=== PATIENT | female | born 1990 | race Caucasian/White ===

== ENCOUNTER 2017-03-13 15:38 | Emergency (ER) | payer OTHER ==
[~2017-03-13] VITALS: Ht 147.3 cm; Wt 52.0 kg
[~2017-03-13 15:38] MED LIST: ALBU18HF INHALATION; CALC-277 PO; ERGO500014 PO; OMEP20CA16 PO; ONDA4TAB95 PO; POTA10TA97 PO; POTA20TA96 PO; SUCR1TAB56 PO
[2017-03-13 15:43] VITALS: Ht 147.3 cm; Wt 52.0 kg
[2017-03-13] MEDS ORDERED: ONDANSETRON 4 MG INJ IV STA (16:47)
[2017-03-13] MEDS ORDERED: morphine 4 MG/ML VIAL IV STA (16:47)
[2017-03-13] MEDS ORDERED: SOD CHLORIDE 0.9% 1,000 ML IV STA (16:47)
[2017-03-13] MEDS ORDERED: METO10TA96 PO (17:08)
[2017-03-13] MEDS ORDERED: PANT20TA3 PO (17:09)
[2017-03-13] MEDS ORDERED: POTASSIUM CHLORIDE (SR) 20 MEQ TAB PO STA ×2 (17:27→18:41)
[2017-03-13] MEDS ORDERED: MAGNESIUM OXIDE 400 MG TAB PO ONE (17:30)
[2017-03-13] MEDS ORDERED: MAGN400T28 PO (18:49)
[2017-03-13] MEDS ORDERED: ONDA4TAB11 PO (18:49)
--- NOTE | 2017-03-13 18:54 | ERD ---
ER Documentation Chief Complaint Chief Complaint vomiting x 1 week , dizziness , h/o hypokalemia HPI This 26-year-old female presents for vomiting for a week as well as dizziness and hypokalemia. States that she gets nausea from time to time and has problems with chronic hypokalemia. 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 Has occasional constipation with no diarrhea. ROS All systems reviewed and are negative except as per history of present illness. Medications Home Meds Active Scripts Ondansetron (Zofran Odt) 4 Mg Tab.rapdis, 4 MG PO Q6 for NAUSEA AND/OR VOMITING , #20 Prov:SMOOTHYUMIKO DO 03/13/17 Magnesium Oxide* (Magnesium Oxide*) 400 Mg Tablet, 400 MG PO DAILY, #30 TAB Prov:YUMIKO REBOLLAR DO 03/13/17 Reported Medications Pantoprazole* (Pantoprazole*) Unknown Strength Tablet.dr, 1 TAB PO TID, TAB 03/13/17 Metoclopramide Hcl* (Metoclopramide Hcl*) 10 Mg Tablet, 10 MG PO TID Y for NAUSEA AND OR VOMITING, TAB 03/13/17 Sucralfate* (Carafate*) 1 Gm Tab, 1 GM PO AC MEALS AND BEDTIME, TAB 04/30/16 Potassium Chloride* (Potassium Chloride*) 20 Meq Tablet.er, 60 MEQ PO DAILY, TAB.SA 04/30/16 Discontinued Reported Medications Ergocalciferol* (Drisdol* (Vitamin D2)) 50,000 Unit Capsule, [address]35[address] UNIT PO Q7D, CAP 04/30/16 Calcium Carbonate/Vitamin D3 (OYSTER SHELL 500 MG + VIT D TB) 1 Each Tablet, 1 EACH PO DAILY, TAB 04/30/16 Potassium Chloride (Klor-Con) 10 Meq Tablet.sa, 20 MEQ PO DAILY, TAB.SA 04/30/16 Ondansetron Hcl* (Ondansetron Hcl*) 4 Mg Tablet, 4 MG PO Q8 Y for PRN, TAB 04/30/16 Omeprazole* (Omeprazole*) 20 Mg Capsule.dr, 20 MG PO DAILY, #30 CAP 04/30/16 Albuterol Sulfate* (Ventolin HFA*) 18 Gm Hfa.aer.ad, 2 PUFF INHALATION Q4H, #1 INHALER 04/30/16 Allergies Allergies: Coded Allergies: No Known Allergy (Unverified , 03/13/17) PMhx/Soc History of Surgery: No Anesthesia Reaction: No Hx Neurological Disorder: No Hx Respiratory Disorders: No Hx Cardiac Disorders: No Hx Psychiatric Problems: No Hx Miscellaneous Medical Probl: Yes (medullary nephrocalcinosis , hypokalemia ) Hx Alcohol Use: No Hx Substance Use: No Hx Tobacco Use: No Smoking Status: Never smoker Physical Exam Vitals Vital Signs Date Time Temp Pulse Resp B/P Pulse Ox O2 Delivery O2 Flow Rate FiO2 03/13/17 18:40 98.1 89 18 105/55 100 Room Air 03/13/17 15:43 98.1 106 18 121/79 100 Physical Exam Const: [] Mild distress Head: Atraumatic Eyes: Normal Conjunctiva ENT: Normal External Ears, Nose and Mouth. Neck: Full range of motion..~ No meningismus. Resp: Clear to auscultation bilaterally Cardio: Regular rate and rhythm, no murmurs Abd: Soft, mild epigastric pain without guarding or rebound, non distended. Normal bowel sounds Skin: No petechiae or rashes Ext: No cyanosis, or edema Neur: Awake and alert 3, no focal deficits Psych: Normal Mood and Affect Result Diagram: 03/13/17 1650 03/13/17 165 Results 24 hrs Laboratory Tests Test 03/13/17 16:50 03/13/17 16:51 White Blood Count 11.510^3/ul Red Blood Count 5.6710^6/ul Hemoglobin 15.3g/dl Hematocrit 45.0% Mean Corpuscular Volume 79.4fl Mean Corpuscular Hemoglobin 27.0pg Mean Corpuscular Hemoglobin Concent 34.0g/dl Red Cell Distribution Width 13.9% Platelet Count 35645^3/UL Mean Platelet Volume 10.6fl Neutrophils % 59.3% Lymphocytes % 29.3% Monocytes % 9.4% Eosinophils % 1.0% Basophils % 0.7% Nucleated Red Blood Cells % 0.0/100WBC Neutrophils # 6.810^3/ul Lymphocytes # 3.410^3/ul Monocytes # 1.110^3/ul Eosinophils # 0.110^3/ul Basophils # 0.110^3/ul Nucleated Red Blood Cells # 0.010^3/ul Sodium Level 143mmol/L Potassium Level 2.9mmol/L Chloride Level 101mmol/L Carbon Dioxide Level 26mmol/L Anion Gap 19 Blood Urea Nitrogen 15mg/dl Creatinine 1.00mg/dl Glucose Level 87mg/dl Calcium Level 9.8mg/dl Total Bilirubin 0.2mg/dl Direct Bilirubin 0.00mg/dl Indirect Bilirubin 0.2mg/dl Aspartate Amino Transf (AST/SGOT) 33IU/L Alanine Aminotransferase (ALT/SGPT) 41IU/L Alkaline Phosphatase 170IU/L Total Protein 8.9g/dl Albumin 5.0g/dl Globulin 3.90g/dl Albumin/Globulin Ratio 1.28 Lipase 193U/L Urine Color COLORLESS Urine Clarity CLEAR Urine pH 7.0 Urine Specific [place] 1.003 Urine Ketones NEGATIVEmg/dL Urine Nitrite NEGATIVEmg/dL Urine Bilirubin NEGATIVEmg/dL Urine Urobilinogen NEGATIVEmg/dL Urine Leukocyte Esterase NEGATIVELeu/ul Urine Hemoglobin NEGATIVEmg/dL Urine Glucose NEGATIVEmg/dL Urine Total Protein NEGATIVEmg/dl Current Medications Medications (Trade) Dose Ordered Sig/Luther Route PRN Reason Start Time Stop Time Status Last Admin Dose Admin Sodium Chloride (NS) 1,000 ml @ 1,000 mls/hr Q1H STAT IV 03/13/17 16:47 03/13/17 17:46 DC 03/13/17 16:55 Morphine Sulfate (morphine) 4 mg ONCE STAT IV 03/13/17 16:47 03/13/17 16:49 DC 03/13/17 16:55 Ondansetron HCl (Zofran Inj) 4 mg ONCE STAT IV 03/13/17 16:47 03/13/17 16:49 DC 03/13/17 16:55 Potassium Chloride (Klor-Con 20) 40 meq ONCE STAT PO 03/13/17 17:27 03/13/17 17:28 DC 03/13/17 17:53 Magnesium Oxide (Mag-Ox 400) 400 mg ONCE ONCE PO 03/13/17 17:30 03/13/17 17:31 DC 03/13/17 17:53 Potassium Chloride (Klor-Con 20) 40 meq ONCE STAT PO 03/13/17 18:41 03/13/17 18:42 DC Procedures/MDM Hypokalemia and vomiting. No signs of acute infection. Mild leukocytosis likely secondary to vomiting. Patient was given a single dose of 4 mg Reglan as well as a liter of fluid which resolved her symptoms completely. She had no pain. Does have hypokalemia. She was able to easily swallow to 40 mEq K-Dur tabs. Also gave her magnesium oxide tablet. I am going to discharge her with both magnesium oxide and Zofran. Primary care doctor currently working on her hypokalemia problem 9 pending her labs that she can take with her assist in the investigation.. Departure Diagnosis: Primary Impression: Hypokalemia Additional Impression: Vomiting Condition: Stable Patient Instructions: Hypokalemia, Vomiting (6Y-Adult) Additional Instructions: Call your primary care doctor TOMORROW for an appointment during the next 2-3 days.See the doctor sooner or return here if your condition worsens before your appointment time. YUMIKO REBOLLAR DO Mar 13, 2017 18:54
[2017-03-13 19:10] VITALS: BP 103/61; PULSE 76; RESP 18; TEMP 98.5
== END 2017-03-13 19:10 | disposition home or self-care (01) ==
LOC: E/R 15:38
DX: E87.6 Hypokalemia (principal)
CPT/HCPCS: 36415; 80053; 81003; 83690; 85025; 96374; 96375; J2270; J2405; J7030; Z7502; Z7610